=== PATIENT | male | born 1960 | race Caucasian/White ===

== ENCOUNTER 2018-02-25 20:31 | Emergency (ER) | payer OTHER ==
[~2018-02-25] VITALS: Ht 165.1 cm; Wt 85.3 kg
[2018-02-25 20:37] VITALS: Ht 165.1 cm; Wt 85.3 kg
[2018-02-25 22:19] VITALS: BP 120/74
== END 2018-02-25 22:19 | disposition home or self-care (01) ==
LOC: ED 20:31
DX: S61.012A Laceration without foreign body of left thumb without damage to nail, initial encounter (principal); W26.0XXA Contact with knife, initial encounter; Y93.89 Activity, other specified; Y92.090 Kitchen in other non-institutional residence as the place of occurrence of the external cause; Y99.8 Other external cause status
CPT/HCPCS: 90715; J2001